=== PATIENT | female | born 1955 | race Asian ===

== ENCOUNTER 2019-06-12 00:53 | Emergency (ER) | payer OTHER, SELFPAY ==
[2019-06-12] VITALS (8 sets, daily range): BP systolic 103–137; BP diastolic 58–74; PULSE 68–91; RESP 16–20; TEMP 36.7; O2SAT 97–100
--- NOTE | ~2019-06-12 | CT_ITS ---
EXAMINATION: CT brain wo con DATE: 06/12/2019 03:40 INDICATION: Posterior head injury. Syncopal episode. Confusion. TECHNIQUE: Computed tomography (CT) of the head was performed without intravenous contrast. The mA wa s adjusted according to patient size. Iterative reconstruction technique was employed. Exam dose: 60 5.33 mGy-cm total exam DLP. COMPARISON: None FINDINGS: No intracranial mass lesion or hemorrhage or evidence of cerebrovascular accident. No midli ne shift or mass effect. Normal ventricular size. No subdural or epidural hematoma. No orbital mass l esion. The mastoid air cells and paranasal sinuses included in the examination are unremarkable. No f racture or bone destruction of the cranial vault. IMPRESSION: No significant abnormality Reviewed, dictated and finalized at Location [facility]. Reviewed, dictated and finalized at location A. IMPRESSION: No significant abnormality
--- NOTE | 2019-06-12 01:19 | ECG_ITS ---
Measurements Intervals [place] Rate: 79 P: 81 IA: 253 QRS: 253 QRSD: 104 T: 64 QT: 413 QTc: 474 Interpretive Statements SINUS RHYTHM WITH FIRST DEGREE AV BLOCK BORDERLINE T WAVE ABNORMALITY- INFERIOR LEADS BASELINE ARTIFACT- AVL ABNORMAL ECG Electronically Signed On 06-12-2019 7:20:17 CDT by Javon Phoenix D.O.
[2019-06-12 01:40] LABS: Blood Urea Nitrogen 23 mg/dL (7-17); Calcium 9.4 mg/dL (8.4-10.2); Carbon Dioxide 32 mmol/L (22-30); Chloride 104 mmol/L (98-107); Estimated Glomerular Filt Rate > 60; Glucose 101 mg/dL (65-105); Potassium 3.8 mmol/L (3.4-5.0); Sodium 138 mmol/L (137-145)
[2019-06-12 01:42] LABS: Basophils Percent Auto 0.5 % (0.2-1.2); Eosinophils Absolute Auto 0.1 K/mm3 (0-0.3); Eosinophils Percent Auto 1.5 % (0-4.4); Hematocrit 44.2 % (37.0-47.0); Hemoglobin 14.1 g/dL (12.0-15.0); Immature Granulocyte Absolute 0.02 K/mm3 (0.00-0.031); Immature Granulocyte Percent A 0.3 % (0-0.5); Lymphocytes Percent Auto 43.6 % (18.3-44.2); Mean Corpuscular HGB Conc 31.9 g/dl (32-36); Mean Corpuscular Hemoglobin 29.8 pg (26-34); Mean Corpuscular Volume 93.4 fl (80-100); Monocytes Absolute Auto 0.4 K/mm3 (0.1-0.6); Monocytes Percent Auto 6.2 % (2.6-8.5); Neutrophils Absolute Auto 2.9 K/mm3 (1.3-6.7); Neutrophils Percent Auto 47.9 % (45.5-73.1); Platelet Count Result 215 k/mm3 (150-375); Red Blood Count 4.73 M/mm3 (4.2-5.4); Red Cell Distribution Width 11.9 % (11.5-14.5)
[2019-06-12] MEDS: SODIUM CHLORIDE 0.9% IV 500 ML 999 ML IV CONT (03:54)
[2019-06-12 04:02] LABS: Troponin I < 0.012 ng/mL (0.000-0.034)
--- NOTE | 2019-06-12 04:32 | ED.GENADULT ---
HPI - General Adult General Chief complaint: Syncope Stated complaint: 2 FALLS, HI, N/V Time Seen by Provider: 06/12/19 02:47 Source: patient and family Mode of arrival: ambulatory Limitations: no limitations History of Present Illness HPI narrative: This patient is 63 yo female who presents from home for evaluation of 2 falls. Patient's states patient first fell while getting out the bed and she hit her head on dresser. He states patient states she just slipped and fell , and she denied dizziness . He then states she went to bathroom, and when he went to check on her she had fallen off the toilet. Patient reports she was nauseated and she passed out. She denies having chest pain, sob, vomiting, fever, or dizziness. PAtient denies any complaints now. She denies headaches as well . She reports she was feeling well prior to fall out of the bed. Patient was ambulatory into the ER with steady gait. Related Data Allergies Allergy/AdvReac Type Severity Reaction Status Date / Time No Known Allergies Allergy Mild Verified 06/12/19 01:14 Review of Systems ENT: Denies dizziness and Denies epistaxis Cardiovascular: Cardiovascular: Denies chest pain Respiratory: Respiratory: Denies cough and Denies dyspnea Gastrointestinal: Gastrointestinal: Denies abdominal pain, Reports nausea and Denies vomiting Musculoskeletal: Musculoskeletal: Denies back pain Neurologic: Reports syncope, Reports headache(s), Denies focal weakness and Denies numbness PMFSH Past Medical History Medical History (Updated 06/12/19 @ 04:40 by Mora Carlson MD) No pertinent past medical history Surgical History Surgical History (Updated 01/31/19 @ 04:08 by Andrew Mehta MD) No pertinent past surgical history Social History Social History (Updated 01/31/19 @ 04:07 by Andrew Mehta MD) Smoking status: Never smoker Alcohol intake: never Gender identity (if verbalized by the patient): Female Exam Const: General: no acute distress and alert Orientation/consciousness: patient oriented x3 HENMT: Head: scalp tenderness (right posterior scalp) and other Ears: hearing grossly normal bilaterally and TM normal on the left Face and sinus: normal facial exam, sinuses nontender and face symmetric Mouth: Yes Normal oral and palatal mucosa present, Yes lip normal, Yes oropharynx normal and Yes moist mucous membranes Eyes: Conjunctivae: conjunctivae normal Pupils: Equal, round and reactive pupils present EOM: EOMs intact bilaterally Neck: Neck: normal visual inspection and no lymphadenopathy Other: no midline cervical tenderness Chest: Chest palpation & inspection: normal inspection of the chest Resp: Effort & Inspection: normal respiratory effort, no retractions and no use of accessory muscles Auscultation: clear to auscultation bilaterally GI: GI Palp: Yes Soft to palpation, No Tenderness to palpation present (GI), No Guarding due to palpation present (GI) and No Rigid due to palpation : General: No CVA tenderness and Yes no CVA tenderness Neuro: General: patient oriented x3, moves all extremities, no meningeal signs and CN's II-XI intact bilaterally Extrem: General: normal to inspection and no pedal edema Psych: Mental Status: mental status grossly normal Course Vital Signs Vital signs: Vital Signs Temperature 98.1 F 06/12/19 01:09 Pulse Rate 91 06/12/19 01:09 Respiratory Rate 18 06/12/19 01:09 Blood Pressure 137/73 06/12/19 01:09 Pulse Oximetry 100 06/12/19 01:09 Temperature 98.1 F 06/12/19 01:09 Pulse Rate 71 06/12/19 04:44 Respiratory Rate 20 06/12/19 04:44 Blood Pressure 107/60 06/12/19 04:44 Pulse Oximetry 97 06/12/19 04:44 Medical Decision Making Vital Signs Vital Signs: Vital Signs Temperature 98.1 F 06/12/19 01:09 Pulse Rate 91 06/12/19 01:09 Respiratory Rate 18 06/12/19 01:09 Blood Pressure 137/73 06/12/19 01:09 Pulse Oximetry 100 04
== END 2019-06-12 04:54 | disposition home or self-care (01) ==
PROVIDERS: Emergency Provider General Practice
DX: R55 Syncope and collapse (principal); S09.90XA Unspecified injury of head, initial encounter; I44.0 Atrioventricular block, first degree; R94.31 Abnormal electrocardiogram [ECG] [EKG]; W06.XXXA Fall from bed, initial encounter
CPT/HCPCS: 36415; 70450; 80048; 84484; 85025; 93005; 96360; 99284; J7040

== ENCOUNTER 2020-01-16 12:27 | Outpatient (CLI) | payer MEDICARE, OTHER, SELFPAY ==
--- NOTE | ~2020-01-16 | MR_ITS ---
EXAMINATION: MR brain IAC wo/w con EXAM DATE: 01/16/2020 14:45 INDICATION: Bilateral tinnitus. TECHNIQUE: Multi-sequential, multiplanar MR images of the brain, brainstem, internal auditory canals were obtained without contrast. Whole brain sagittal T1, axial diffusion, gradient echo (T2*), T1, T 2, FLAIR sequences obtained. High resolution coronal 3-D FIESTA, coronal T1 FSE, axial T1 FSPGR of t he internal auditory canals. Patient was then injected with 8 cc Multihance contrast intravenously. Postcontrast axial and coronal T1 weighted whole brain, axial and coronal high resolution T1 IAC sequ ences obtained. There is no prior study for comparison. FINDINGS: No evidence of mastoid or middle ear opacification. The 7th/8th cranial nerve complexes a re symmetric accounting for patient positioning. No cerebellopontine angle masses. Posterior fossa unremarkable. There are no areas of restricted diffusion to suggest acute infarction. There is no acute hemorrhage seen on the T2*, a hemosiderin sensitive sequence. No intraparenchymal brain mass. The ventricles a re normal in size. There are no extra-axial collections. Flow voids are seen in the cerebral arteri es on the T2-weighted sequences consistent with their expected patency. The orbits are unremarkable. Soft tissue is unremarkable. IMPRESSION: 1. Unremarkable brain/IAC MRI examination. Reviewed, dictated and finalized at location B. L PLATER
--- NOTE | ~2020-01-16 | CT_ITS ---
EXAMINATION: CT abdomen pelvis w con EXAM DATE: 01/16/2020 13:29 INDICATION: Abdominal pain. TECHNIQUE: Spiral CT of the abdomen and pelvis was performed following intravenous injection of 100 m L Omnipaque 350. Axial, coronal and sagittal images were reviewed. The dose-length product (DLP) fo r this examination was 148.60 mGy-cm. The exposure was tailored according to patient size (auto mA e xposure control), and iterative reconstruction (ASIR) was used as additional dose reduction technique . There is no prior study for comparison. FINDINGS: There are several small liver cysts. Liver, spleen, pancreas and adrenal glands are otherwi se unremarkable. Gallbladder is unremarkable. No biliary obstruction. Portal and splenic veins are patent. Kidneys enhance symmetrically. There is no hydronephrosis. The uterus is unremarkable. The bladder is unremarkable. There is no retroperitoneal or pelvic lymphadenopathy. The appendix is normal. The stomach and small bowel are unremarkable. There is moderate amount of c olonic stool. No free intraperitoneal gas. The heart is normal in size. There are no pericardial or pleural effusions. The lung bases are unremarkable. There are no osteoblastic or osteolytic les ions identified. There is mild to moderate lumbar levoscoliosis. IMPRESSION: 1. Moderate amount of colonic stool. Consider constipation. Reviewed, dictated and finalized at location B. [employer]
[2020-01-16 13:24] LABS: Estimated Glomerular Filt Rate > 60
== END 2020-01-16 12:28 | disposition home or self-care (01) ==
PROVIDERS: PCP Emergency Medicine; Visit Provider Emergency Medicine
DX: R10.9 Unspecified abdominal pain (principal); H93.13 Tinnitus, bilateral
CPT/HCPCS: 70553; 74177; A9577; Q9967

== ENCOUNTER 2020-02-09 13:32 | Outpatient (CLI) | payer MEDICARE, OTHER, SELFPAY ==
--- NOTE | 2020-02-09 | ECHO_ITS ---
Patient Info Name: Malaika Morley Age: 64 years : 1955 Gender: Female Ht: 60 in Wt: 85 lbs BSA: 1.27 m2 HR: 72 bpm BP: 116 / 67 mmHg Technical Quality: Good Exam Date: 02/09/2020 2:29 PM Exam Location: [facility] Patient Status: Outpatient Admit Date: 02/09/2020 Staff Ordering Physician: Aj Elizabeth MD Senior Embedded Software Engineer: Ascencion Fajardo RDCS, RT Attending Provider: Aj Elizabeth MD Referring Physician: Glenn ALFONSO; Exam Type: CA echo doppler color flow Study Info Complete two-dimensional, color flow and Doppler transthoracic echocardiogram is performed. Strain analysis performed. Summary 1. Complete two-dimensional, color flow and Doppler transthoracic echocardiogram is performed. 2. Left ventricular chamber dimension is normal. 3. Left ventricular systolic function is normal, estimated at 60-65%. 4. The left ventricular diastolic function is abnormal. 5. E/e' 11 is mildly elevated. 6. Global longitudinal strain is normal at -20.3%. 7. There is trace mitral valve regurgitation. 8. There is trace tricuspid valve regurgitation. 9. No pulmonary hypertension, estimated pulmonary arterial systolic pressure is 25 mmHg. 10. Normal inferior vena cava with <50% collapse upon inspiration consistent with elevated right atrial pressure, 10 mmHg. Left Ventricle E/e' 11 is mildly elevated. Global longitudinal strain is normal at -20.3%. Left ventricular chamber dimension is normal. Left ventricular systolic function is normal, estimated at 60-65%. The left ventricular diastolic function is abnormal. Right Ventricle Right ventricular chamber dimension is normal. Right ventricular systolic function is normal. Left Atria Left atrial chamber dimension is normal. Right Atria Right atrial chamber dimension is normal. Aortic Valve The aortic valve is not well visualized. Cannot determine number of aortic valve leaflets. There is no aortic valve stenosis. There is no aortic valve regurgitation. Pulmonic Valve There is no pulmonic regurgitation. Mitral Valve There is no mitral valve stenosis. There is trace mitral valve regurgitation. Tricuspid Valve There is trace tricuspid valve regurgitation. No pulmonary hypertension, estimated pulmonary arterial systolic pressure is 25 mmHg. Pericardium/Pleural There is no pericardial effusion. Inferior Vena Cava Normal inferior vena cava with <50% collapse upon inspiration consistent with elevated right atrial pressure, 10 mmHg. Aorta The aortic root size at the sinus of Valsalva is normal. Left Ventricular Outflow Tract Name Value Normal LVOT 2D LVOT Diameter 1.9 cm LVOT Doppler LVOT Peak Gradient 2 mmHg LVOT Mean Gradient 1 mmHg LVOT VTI 16 cm LVOT VTI/AV VTI Ratio 0.7 LVOT Stroke Volume 44 ml LVOT CO 3.4 l/min LVOT CI 2.7 l/min/m2 Mitral Valve
== END 2020-02-09 13:33 | disposition home or self-care (01) ==
PROVIDERS: PCP Emergency Medicine; Visit Provider Emergency Medicine
DX: R01.1 Cardiac murmur, unspecified (principal)
CPT/HCPCS: 93306

== ENCOUNTER 2020-02-27 12:56 | Outpatient (CLI) | payer MEDICARE, OTHER, SELFPAY ==
--- NOTE | ~2020-02-27 | DEXA_ITS ---
Bone Density Report Name: Malaika Morley Age: 64 Sex: Female Ethnicity: Date of : 1955 Indication: postmenopausal; hysterectomy; Referring Provider: CHARLEE WHITNEY Study: Bone densitometry was performed. Exam Date: February 27, 2020 Accession number: [id number] Bone Density: Region BMD T-score Z-score Classification AP Spine (L1-L4) 0.715 -3.0 -1.2 Osteoporosis Femoral Neck (Left) 0.598 -2.3 -0.7 Osteopenia Total Hip (Left) 0.689 -2.1 -0.8 Osteopenia Total Hip Bilateral Avg 0.737 -1.7 -0.5 Osteopenia Femoral Neck (Right) 0.637 -1.9 -0.4 Osteopenia Total Hip (Right) 0.783 -1.3 -0.1 Osteopenia World Health Organization criteria for BMD impression classify patients as: Normal (T-score at or above -1.0), Osteopenia (T-score between -1.0 and -2.5), or Osteoporosis (T-score at or below -2.5). 10-year Fracture Risk: FRAX not reported because: Some T-score for Spine Total or Hip Total or Femoral Neck at or below -2.5 Clinical Information Provided by Patient: Has the following medical conditions: Hysterectomy Patient maximum height was 60 Menopause Age: 49 Drinks caffeinated beverages Onset of menses at age 13 Number of children 4 Impression: The patient has osteoporosis, based on the Total Spine T-score. Discussion: INCREASED RISK OF FRACTURE. BONE DENSITY IS UNDESIRABLY LOW AT ONE OR MORE SKELETAL SITES, CONSISTENT WITH POSTMENOPAUSAL OSTEOPOROSIS. This patient's lowest T-score meets the World Health Organization's (WHO) criteria for osteoporosis at one or more sites (T-score -2.5 or below). In untreated patients, the risk of osteoporotic fracture increases approximately two-fold for each 1.0 SD decrease in T-score. Low bone density is not the only risk factor for fracture; also consider factors such as patient's age, frailty or poor health, risk of falling, risk of injury, previous osteoporotic fracture, family history of osteoporosis, cigarette smoking, low body weight, etc. Not everyone with low bone mineral density has osteoporosis; osteomalacia and other metabolic bone disorders should also be considered. Patients who have osteoporosis should be evaluated for specific diseases and conditions (secondary causes) that may cause or contribute to bone loss. The [place] Association of Clinical Endocrinologists (AACE) and National Osteoporosis Foundation (NOF) recommend pharmacologic intervention for all postmenopausal women whose T-score is in this range. The patient should follow a healthful lifestyle (good nutrition with adequate calcium and vitamin D, and appropriate weight-bearing exercise). Follow-Up: Consider a repeat BMD and Vertebral Fracture Assessment (VFA) exam in 2 years or sooner if medically necessary, to reassess this patient's status. Reported by: [facility] on 02/27/2020 1:22:00 PM.
== END 2020-02-27 12:57 | disposition home or self-care (01) ==
PROVIDERS: PCP Emergency Medicine; Visit Provider Emergency Medicine
DX: Z78.0 Asymptomatic menopausal state (principal); M81.0 Age-related osteoporosis without current pathological fracture; M85.852 Other specified disorders of bone density and structure, left thigh; M85.851 Other specified disorders of bone density and structure, right thigh
CPT/HCPCS: 77080

== ENCOUNTER → 2020-03-29 03:22 | Outpatient (CLI) | payer MEDICARE, OTHER, SELFPAY ==
[2020-03-29 18:11] LABS: SARS-CoV-2 RNA PCR Negative
== END ==
PROVIDERS: PCP Emergency Medicine; Visit Provider Internal Medicine Gastroenterology
DX: Z01.812 Encounter for preprocedural laboratory examination (principal); Z20.822 Contact with and (suspected) exposure to COVID-19
CPT/HCPCS: C9803; U0003; U0005

== ENCOUNTER 2020-04-01 02:07 | Day surgery (SDC) | payer MEDICARE, OTHER, SELFPAY ==
[2020-03-15 13:02] VITALS: BMI 17.2
[2020-04-01 07:27] VITALS: BP 112/59; PULSE 78; RESP 16; TEMP 36.6; O2SAT 100; BMI 16.0
[2020-04-01] MEDS: LACTATED RINGERS 1,000 ML 150 ML IV CONT (07:38)
--- NOTE | 2020-04-01 07:45 | P.PNAN_ITS ---
Anes - Initial Pre Proc Eval Procedure: Operation Date: 04/01/20 08:30 Proposed Procedures p Esophagogastroduodenoscopy - Reinaldo France MD Date/Time: 04/01/20 07:45 Surgeon: Reinaldo France MD Pre Op Diagnosis: Abdominal Pain Patient Data Age: 64 Gender: F Height: 1.52 m Weight: 37.2 kg Last Vital Signs Temp 36.6 C 04/01/20 07:27 Pulse 78 04/01/20 07:27 Resp 16 04/01/20 07:27 BP 112/59 L 04/01/20 07:27 Pulse Ox 100 04/01/20 07:27 Allergies Allergy/AdvReac Type Severity Reaction Status Date / Time prednisone Allergy Other Verified 04/01/20 07:24 phenazopyridine AdvReac Nausea Verified 04/01/20 07:21 Home Medications Medication Instructions Recorded Confirmed Type No Home Medications 03/15/20 03/15/20 History Patient hx anesthesia problems: none Family hx anesthesia problems: none [facility] Past Medical History Medical History (Updated 03/13/20 @ 10:28 by Reinaldo France MD) Chronic LUQ pain No pertinent past medical history Weight loss Surgical History Surgical History No pertinent past surgical history Social History Social History Smoking status: Never smoker Alcohol intake: never Substance use type: does not use Living arrangements: with family Gender identity (if verbalized by the patient): Female Sexual Orientation (if Verbalized by the Patient): Straight or Heterosexual Spiritual care concerns: No Anes - Eval Final PreProcedure Day of Procedure 04/01/20 07:45 Patient weight: overweight Heart: regular rate and rhythm Lungs: clear to auscultation and normal air movement Airway: Mallampati scale class II Neurological: alert and oriented Last oral intake: >/= 8 hours ASA classification: II Emergent: no Anesthetic plan: proceed Anesthesia type and monitoring: general GIVS Informed Consent: The patient's anesthetic plan and its attendant risks and benefits were discussed with the patient/family/POA. Questions were solicited and answers provided to the satisfaction of the patient/family/POA.
--- NOTE | 2020-04-01 07:53 | WPDHPUPDATE1 ---
History and Physical Update Update Date/Time: 04/01/20 07:53 History and Physical has been reviewed, including an updated exam of the patient. There are NO changes in the patient's condition. Risks, benefits, and alternatives have been discussed and questions answered. Patient agrees to proceed with procedure.
[2020-04-01 08:04] VITALS: BP 91/39; PULSE 71; RESP 21; O2SAT 99
[2020-04-01 08:14] VITALS: BP 80/46; PULSE 65; RESP 21; O2SAT 99
[2020-04-01 08:24] VITALS: BP 89/62; PULSE 65; RESP 21; O2SAT 99
[2020-04-01 08:29] VITALS: BP 104/56; PULSE 65; RESP 21; O2SAT 99
--- NOTE | 2020-04-01 08:29 | SUR.PHASEII ---
Pt c/o pain to left eye stating it feels like something in it. Eye red and watery. Dr. Philip made aware.
--- NOTE | 2020-04-01 09:02 | SUR.PHASEII ---
Pt's eye feeling better. States has dry eye and sometimes feels scratchy and watery. Feels ok to go home. States she will call MD if problems continue or worsen.
== END 2020-04-01 09:12 | disposition home or self-care (01) ==
PROVIDERS: PCP Emergency Medicine; Visit Provider Internal Medicine Gastroenterology
PROC: 0DJ08ZZ Inspection of Upper Intestinal Tract, Via Natural or Artificial Opening Endoscopic (ICD-10-PCS; CPT 43235; principal; 2020-04-01 08:30)
DX: R10.12 Left upper quadrant pain (principal); K29.50 Unspecified chronic gastritis without bleeding
CPT/HCPCS: 43239; 88305; A9270; J2001; J2704; J7120

== ENCOUNTER 2020-07-10 18:55 | Emergency (ER) | payer MEDICARE, OTHER, SELFPAY ==
[2020-07-10 19:30] VITALS: BP 107/53; PULSE 97; RESP 18; TEMP 36.8; O2SAT 100
--- NOTE | 2020-07-10 19:58 | PC.NURSE ---
Patient does report that she did use Tide prior to onset of the symptoms but she does tell me that she has used Tide in the past with no issues. She is not aware of any other exposures. Additionally she tells me that she is unable to wear her underwear because it rubs to area affected by the rash. She also is slow to walk and slow to sit down telling me that she is sore due to the rash which she describes as being located to the buttocks and posterior upper legs bilaterally. Lastly she report some pain to the left ankle that began yesterday. She is not reporting a known injury to the ankle at this time. She reports that she does work out in the yard and didn't know if she got an insect bite to the ankle. No other concerns are reported at this time.
--- NOTE | 2020-07-10 20:19 | ED.GENADULT ---
HPI - General Adult General Chief complaint: ACCOUNTING SUPERVISOR Stated complaint: rash on vagina onto legs since last week Time Seen by Provider: 07/10/20 20:08 Source: patient and RN notes reviewed Mode of arrival: ambulatory Limitations: no limitations History of Present Illness HPI narrative: Patient is a 64-year-old female who presents with rash on the labia and buttock and left thigh that began a week ago patient presents noting burning aching pain is unsure as to the etiology denies similar occurrence in the past Related Data Home Medications Medication Instructions Recorded Confirmed cyclosporine [Restasis] drp 07/10/20 ergocalciferol (vitamin D2) 07/10/20 07/10/20 Allergies Allergy/AdvReac Type Severity Reaction Status Date / Time prednisone Allergy Other Verified 07/10/20 19:56 phenazopyridine AdvReac Nausea Verified 07/10/20 19:56 Review of Systems Review of Systems: All systems reviewed & are unremarkable except as noted in HPI and below PMFSH Past Medical History Medical History Chronic LUQ pain No pertinent past medical history Weight loss Surgical History Surgical History No pertinent past surgical history Social History Social History Smoking status: Never smoker Alcohol intake: never Substance use type: does not use Gender identity (if verbalized by the patient): Female Spiritual care concerns: No Exam Narrative: Exam Narrative: GENERAL: Well-appearing, well-nourished, and in no acute distress. HEAD: Normocephalic, atraumatic. EYES: PERRLA and EOMI. ENT: Nares clear, no rhinorrhea or epistaxis. Mucous membranes moist. CHEST: Clear to auscultation. No respiratory distress. No wheezes rales or rhonchi HEART: Regular rate and rhythm. No murmur heard. EXTREMITIES: Normal range of motion. No edema. SKIN: Warm, dry, patient with herpetic rash to the left labia buttock and thigh consistent with shingles NEURO: No focal deficits. Alert and oriented x3. PSYCH: Normal mood and affect. Course Course Emergency Course: Patient in the room no distress will set up appointment with primary care felt appropriate for outpatient reevaluation Vital Signs Vital signs: Vital Signs Temperature 98.3 F 07/10/20 19:30 Pulse Rate 97 07/10/20 19:30 Respiratory Rate 18 07/10/20 19:30 Blood Pressure 107/53 L 07/10/20 19:30 Pulse Oximetry 100 07/10/20 19:30 Temperature 98.3 F 07/10/20 19:30 Pulse Rate 97 07/10/20 19:30 Respiratory Rate 18 07/10/20 19:30 Blood Pressure 107/53 L 07/10/20 19:30 Pulse Oximetry 100 07/10/20 19:30 Medical Decision Making MDM Narrative Medical decision making narrative: Patient with rash consistent with shingles will be managed outpatient Vital Signs Vital Signs: Vital Signs Temperature 98.3 F 07/10/20 19:30 Pulse Rate 97 07/10/20 19:30 Respiratory Rate 18 07/10/20 19:30 Blood Pressure 107/53 L 07/10/20 19:30 Pulse Oximetry 100 07/10/20 19:30 Temperature 98.3 F 07/10/20 19:30 Pulse Rate 97 07/10/20 19:30 Respiratory Rate 18 07/10/20 19:30 Blood Pressure 107/53 L 07/10/20 19:30 Pulse Oximetry 100 07/10/20 19:30 Discharge Plan Discharge Clinical Impression: Shingles Patient Disposition: Home, Self-Care Condition: Stable Instructions: Antibiotic Form, Shingles (ED) Additional Instructions: Follow up with primary care in the next 2-3 days for re-evaluation return if symptoms worsen or concerns, any increase in redness swelling pain or fever over 100.5 Clean wound with mild soapy water. Cool compresses for symptom relief Prescriptions: New valacyclovir [Valtrex] 1 gram tablet 1,000 mg PO TID 7 Days Qty: 21 RF: 0 No Action ergocalciferol (vitamin D2) 1,250 mcg (50,000 unit) capsule RF: 0 Restasis
== END 2020-07-10 21:25 | disposition home or self-care (01) ==
PROVIDERS: Emergency Provider Emergency Medicine; PCP Emergency Medicine
DX: B02.9 Zoster without complications (principal)
CPT/HCPCS: 99283

== ENCOUNTER → 2022-04-27 08:13 | Outpatient (CLI) | payer MEDICARE, OTHER, SELFPAY ==
--- NOTE | ~2022-04-27 | XR_ITS ---
EXAMINATION: XR chest 2V DATE: 04/27/2022 08:30 INDICATION: Cough. Chest tightness. TECHNIQUE: Frontal and lateral views of the chest were obtained. COMPARISON: CT abdomen and pelvis 01/16/2020 FINDINGS: There is no pneumonia, pleural effusion, or pneumothorax. The heart size is normal. IMPRESSION: 1. No acute cardiopulmonary disease. Reviewed, dictated and finalized at location A. CIPAL DATABASE DEVELOPER
== END ==
PROVIDERS: PCP Emergency Medicine; Visit Provider Emergency Medicine
DX: R05.9 Cough, unspecified (principal)
CPT/HCPCS: 71046

== ENCOUNTER 2022-07-01 09:27 | Outpatient (CLI) | payer MEDICARE, OTHER, SELFPAY ==
--- NOTE | ~2022-07-01 | XR_ITS ---
Lumbosacral Spine: AP and lateral views Clinical History: Pain Findings: There is mild levoscoliosis. No fracture or subluxation evident. There is moderate degenera tive disc narrowing at L3-L4. There is mild to moderate facet arthropathy throughout the lumbar spine . The sacroiliac joints are normally outlined. Impression: Mild degenerative spondylosis overall, as above. Reviewed, dictated and finalized at location . Impression: Mild degenerative spondylosis overall, as above.
--- NOTE | ~2022-07-01 | XR_ITS ---
EXAMINATION: XR shoulder LT min 2V DATE: 07/01/2022 10:19 INDICATION: Left shoulder joint pain TECHNIQUE: AP internally and externally rotated, AP oblique externally rotated and axillary views of the left shoulder were obtained. COMPARISON: None FINDINGS: Normal alignment. No fracture. Glenohumeral joint is normal. Acromioclavicular joint is normal. Soft tissues are unremarkable. Visualized portion of the left lung is clear. IMPRESSION: Negative left shoulder radiographs. Reviewed, dictated and finalized at location A.
--- NOTE | ~2022-07-01 | XR_ITS ---
XR knee LT min 4V 07/01/2022 10:19 INDICATION: Joint pain PROCEDURE: 4 views left knee COMPARISON: No prior studies for comparison. FINDINGS: Fracture, dislocation or subluxation is not identified. No joint effusion. The soft tissues appear within normal limits. No foreign bodies are identified. IMPRESSION: 1: No significant bone or joint abnormality. Reviewed, dictated and finalized at location B.
--- NOTE | ~2022-07-01 | XR_ITS ---
EXAMINATION: XR elbow RT min 3V DATE: 07/01/2022 10:19 INDICATION: Right elbow joint pain TECHNIQUE: Anteroposterior, two oblique and lateral views of the right elbow were obtained. COMPARISON: None. FINDINGS: Alignment is normal. No fracture or joint effusion. Joint spaces are normal. No erosions. Soft tissue s are unremarkable. IMPRESSION: 1. Negative right elbow radiographs. Reviewed, dictated and finalized at location A.
== END 2022-07-01 09:28 | disposition home or self-care (01) ==
PROVIDERS: PCP Emergency Medicine; Visit Provider Emergency Medicine
DX: M25.50 Pain in unspecified joint (principal)
CPT/HCPCS: 72100; 73030; 73080; 73564

== ENCOUNTER 2022-11-04 13:37 | Outpatient (CLI) | payer MEDICARE, OTHER, SELFPAY ==
--- NOTE | ~2022-11-04 | NM_ITS ---
EXAMINATION: NM thyroid scan w uptake DATE: 11/05/2022 14:30 INDICATION: Disorder of thyroid. COMPARISON: None. TECHNIQUE: 0.393 mCi I-123 was administered orally. Scintigraphic images of the thyroid gland were o btained at 24 hours. Thyroid uptake was calculated by the technologist. FINDINGS: The thyroid uptake is 30% (normal 10-30%), with the right lobe measuring 17% uptake and the left 13%. There is no focal area of decreased or increased activity to suggest hypofunctioning or hyperfunctio elpidio nodule. IMPRESSION: 1. Normal thyroid scintigraphy and 24-hour iodine uptake. Reviewed, dictated and finalized at location A.
== END 2022-11-04 13:38 | disposition home or self-care (01) ==
LOC: ANHIMG 13:39
PROVIDERS: PCP Emergency Medicine; Visit Provider Emergency Medicine
DX: E07.9 Disorder of thyroid, unspecified (principal)
CPT/HCPCS: 78014; A9516

== ENCOUNTER 2022-11-05 14:25 | Outpatient (CLI) | payer MEDICARE, OTHER, SELFPAY ==
--- NOTE | ~2022-11-05 | US_ITS ---
EXAMINATION: US thyroid DATE: 11/05/2022 15:00 INDICATION: Thyroid disorder. TECHNIQUE: Multiple ultrasound images of the thyroid were obtained. COMPARISON: Thyroid scintigraphy 11/05/2022 FINDINGS: The right thyroid lobe measures 4.8 x 1.3 x 2.0 cm. The left thyroid lobe measures 4.7 x 1.4 x 1.8 c m. In the thyroid isthmus, there is a 9 mm solid, hypoechoic, wider than tall nodule with smooth mar gin without echogenic foci (TI-RADS TR4). IMPRESSION: 1. Small thyroid nodule, likely not clinically significant. No follow-up is needed. Reviewed, dictated and finalized at location A. IMPRESSION: 1. Small thyroid nodule, likely not clinically significant. No follow-up is nee ded.
== END 2022-11-05 14:26 | disposition home or self-care (01) ==
PROVIDERS: PCP Emergency Medicine; Visit Provider Emergency Medicine
DX: E07.9 Disorder of thyroid, unspecified (principal); E04.1 Nontoxic single thyroid nodule
CPT/HCPCS: 76536